=== PATIENT | female | born 1945 | race African-American/Black ===

== ENCOUNTER 2019-11-14 15:07 | Emergency (ER) | payer MEDICARE, OTHER ==
[~2019-11-14] VITALS: Ht 157.5 cm; Wt 103.4 kg
--- NOTE | 2019-11-14 15:15 | NUR ---
ED Nurse Note: patient walked into ED from home with her cane c/o lower leg swelling, referred by patient's PMD to rule out DVT. right leg more swollen and warmth noted. patient is alert awake x4 ambulatory breathing unlabored even speaking in full sentences. patient changed into a gown.
--- NOTE | 2019-11-14 15:16 | NUR ---
ED Nurse Note: patient reports she had the swelling on the legs for 3 weeks.
--- NOTE | 2019-11-14 15:27 | Emergency Room Report ---
History of Present Illness General Chief Complaint: Edema Source: Patient Present Illness HPI Patient is a 74-year-old female past medical history of obesity, DVT in the past states she is on any blood thinners, bone cancer of her right lower leg when she was 17, hypertension and diabetes who presents to the ER complaining of right lower extremity swelling for the past 3 weeks. She states that her swelling has been increasing and is painful. She denies any chest pain or shortness of breath. She denies any fever or chills. She denies any abdominal pain nausea or vomiting. She denies any trauma. Patient states that she went to her primary care physician who referred her here. Per PCP note they are requesting arterial and venous ultrasound. Allergies: Coded Allergies: CIPROFLOXACIN (Verified Allergy, Unknown, 11/14/19) HYDROCODONE (Verified Allergy, Unknown, 11/14/19) MEPERIDINE (Verified Allergy, Unknown, 11/14/19) SULFAMETHOXAZOLE (Verified Allergy, Unknown, 11/14/19) TRIMETHOPRIM (Verified Allergy, Unknown, 11/14/19) COVID-19 Screening Contact w/high risk pt: No Experienced COVID-19 symptoms?: No COVID-19 Testing performed LEAD PRESSMAN: No Patient History Reviewed Nursing Documentation: PMH: Agreed; PSxH: Agreed Nursing Documentation-PMH Past Medical History: No History, Except For Hx Hypertension: Yes Hx Diabetes: Yes Review of Systems All Other Systems: negative except mentioned in HPI Physical Exam Vital Signs Date Time Temp Pulse Resp B/P (MAP) Pulse Ox O2 Delivery O2 Flow Rate FiO2 11/14/19 15:10 98.1 94 16 146/90 (108) 100 Room Air Sp02 EP Interpretation: reviewed, normal General Appearance: no apparent distress, alert, GCS 15, non-toxic Head: normocephalic, atraumatic Eyes: bilateral eye normal inspection, bilateral eye PERRL ENT: hearing grossly normal, normal pharynx, no angioedema, normal voice Neck: full range of motion, supple/symm/no masses Respiratory: chest non-tender, lungs clear, normal breath sounds, speaking full sentences Cardiovascular #1: regular rate, rhythm, no edema Gastrointestinal: normal bowel sounds, non tender, soft, non-distended, no guarding, no rebound Rectal: deferred Genitourinary: no CVA tenderness Musculoskeletal: other - Right lower extremity diffuse edema below the knee with tenderness to palpation and warmth to touch, 2+ pedal pulses bilaterally warm extremities normal range of motion Neurologic: greens planter III-XII nml as tested, oriented x3 Psychiatric: no suicidal/homicidal ideation Skin: no rash Lymphatic: no adenopathy Medical Decision Making Diagnostic Impression: Primary Impression: Edema Additional Impression: Pulmonary vascular congestion ER Course Patient's labs demonstrate BNP just under 200. Patient has no known history of CHF. Patient's chest x-ray demonstrates mild increased pulmonary vasculature. Patient's ultrasound demonstrates no evidence for DVT or arterial insufficiency. I went over her results with her and offered her admission for her possible new onset CHF. Patient states that due to the COVID-19 pandemic she does not want to be admitted and will follow up with that assistant floor covering printer on Sunday which is in 3 days. I told her to be very cognizant of worsening symptoms including fever, chest pain or shortness of breath. Bedside RN was at bedside when I was discussing the offer of admission and when she declined bedside RN is Dianne. After discussing risks and benefits of further diagnostics , treatment plans, as well as indications for and risks of admission, the patient is agreeable to being discharged home. I have explained that their evaluation and treatment in the emergency department today is an important step towards them achieving better health but that their evaluation today is not intended to replace further evaluation and treatment by a physician in their local clinic. I have explained that while the current findings suggest no immediate life threatening emergency they will require further evaluation and treatment by a physician of their choice in their area. They understand that it will be necessary for them to review the final reports of their ED visit with their clinic physician. We have reviewed indications for return to the Emergency Department. I have explained that additional time may need to pass and/or additional testing as an outpatient may be necessary before a definitive diagnosis can be made. They tell me they are willing to follow up as instructed within the timeframe I recommend. They appear to understand what we discussed. Additionally they understand that if they are unable to be seen by an outpatient physician they are welcome, and in fact should, return to the Emergency Department for a repeat evaluation. The patient is stable at time of discharge. Laboratory Tests Test 11/14/19 15:25 White Blood Count 9.9 K/UL (4.8-10.8) Red Blood Count 4.42 M/UL (4.20-5.40) Hemoglobin 12.3 G/DL (12.0-16.0) Hematocrit 38.5 % (37.0-47.0) Mean Corpuscular Volume 87 FL (80-99) Mean Corpuscular Hemoglobin 27.9 PG (27.0-31.0) Mean Corpuscular Hemoglobin Concent 32.0 G/DL (32.0-36.0) Red Cell Distribution Width 12.9 % (11.6-14.8) Platelet Count 193 K/UL (150-450) Mean Platelet Volume 11.4 FL (6.5-10.1) H Neutrophils (%) (Auto) 70.3 % (45.0-75.0) Lymphocytes (%) (Auto) 21.8 % (20.0-45.0) Monocytes (%) (Auto) 5.1 % (1.0-10.0) Eosinophils (%) (Auto) 1.3 % (0.0-3.0) Basophils (%) (Auto) 1.5 % (0.0-2.0) Prothrombin Time 10.8 SEC (9.30-11.50) Prothrombin Time INR 1.0 (0.9-1.1) Activated Partial Thromboplast Time 27 SEC (23-33) Sodium Level 139 MMOL/L (136-145) Potassium Level 3.9 MMOL/L (3.5-5.1) Chloride Level 105 MMOL/L (98-107) Carbon Dioxide Level 27 MMOL/L (21-32) Anion Gap 7 mmol/L (5-15) Blood Urea Nitrogen 20 mg/dL (7-18) H Creatinine 1.2 MG/DL (0.55-1.30) Estimated Glomerular Filtration Rate 44.0 mL/min (>60) Glucose Level 182 MG/DL (74-106) H Calcium Level 9.3 MG/DL (8.5-10.1) Total Bilirubin 0.3 MG/DL (0.2-1.0) Aspartate Amino Transferase (AST) 16 U/L (15-37) Alanine Aminotransferase (ALT) 21 U/L (12-78) Alkaline Phosphatase 69 U/L (46-116) Total Creatine Kinase 295 U/L (26-308) Troponin I 0.000 ng/mL (0.000-0.056) Pro-B-Type Natriuretic Peptide 136 pg/mL (0-125) H Total Protein 7.5 G/DL (6.4-8.2) Albumin 3.9 G/DL (3.4-5.0) Globulin 3.6 g/dL Albumin/Globulin Ratio 1.1 (1.0-2.7) EKG Diagnostic Results EKG Time: 15:32 EP Interpretation: Sangeetha Dhillon MD Rate: normal Rhythm: NSR ST Segments: no acute changes Other Impression First-degree AV block, prolonged QT ASA given to the pt in ED: No Rhythm Strip Diag. Results Rhythm Strip Time: 16:07 EP Interpretation: yes - Sangeetha Dhillon MD Rate: 82 bpm Rhythm: NSR, no PVC's, no ectopy Chest X-Ray Diagnostic Results Chest X-Ray Diagnostic Results : # of Views/Limited/Complete: 1 View Indication: Other - edema EP Interpretation: Yes Interpretation: no consolidation, no pneumothorax, other - Increased pulmonary vasculature Impression: Other - Possibly mild CHF Electronically Signed by: Sangeetha Dhillon MD Last Vital Signs Date Time Temp Pulse Resp B/P (MAP) Pulse Ox O2 Delivery O2 Flow Rate FiO2 11/14/19 15:10 98.1 94 16 146/90 (108) 100 Room Air Disposition: HOME, SELF-CARE Condition: Stable Scripts Clindamycin Hcl (CLINDAMYCIN HCL) 300 Mg Capsule 300 MG ORAL THREE TIMES A DAY, #30 CAP Prov: Sangeetha Dhillon M.D. 11/14/19 Additional Instructions: The patient was provided with discharge instructions, notified to follow-up with a primary care doctor and or specialist in the next 24-48 hours, and to return to the ED if they have worsening of their symptoms. Please note that this report is being documented using [employer] technology. This can lead to erroneous entry secondary to incorrect interpretation by the dictating instrument. Sangeetha Dhillon M.D. Nov 14, 2019 15:27
--- NOTE | 2019-11-14 15:45 | NUR ---
ED Nurse Note: US at bedside.
[2019-11-14 15:50] LABS: BASOPHILS % (AUTO) 1.5 % (0.0-2.0); EOSINOPHILS % (AUTO) 1.3 % (0.0-3.0); HEMATOCRIT 38.5 % (37.0-47.0); HEMOGLOBIN 12.3 G/DL (12.0-16.0); LYMPHOCYTES % (AUTO) 21.8 % (20.0-45.0); MEAN CORPUSCULAR VOLUME 87 FL (80-99); MONOCYTES % (AUTO) 5.1 % (1.0-10.0); NEUTROPHILS % (AUTO) 70.3 % (45.0-75.0); PLATELET COUNT 193 K/UL (150-450); RED BLOOD COUNT 4.42 M/UL (4.20-5.40); RED CELL DISTRIBUTION WIDTH 12.9 % (11.6-14.8); WHITE BLOOD COUNT 9.9 K/UL (4.8-10.8)
[2019-11-14 15:55] LABS: ANION GAP 7 mmol/L (5-15); BLOOD UREA NITROGEN 20 mg/dL (7-18); CALCIUM 9.3 MG/DL (8.5-10.1); CARBON DIOXIDE 27 MMOL/L (21-32); CHLORIDE 105 MMOL/L (98-107); CREATININE 1.2 MG/DL (0.55-1.30); POTASSIUM 3.9 MMOL/L (3.5-5.1); SODIUM 139 MMOL/L (136-145)
[2019-11-14 16:01] LABS: ALANINE AMINOTRANSFERASE 21 U/L (12-78); ALBUMIN 3.9 G/DL (3.4-5.0); ALBUMIN/GLOBULIN RATIO 1.1 (1.0-2.7); ALKALINE PHOSPHATASE 69 U/L (46-116); ASPARTATE AMINO TRANSFERASE 16 U/L (15-37); BILIRUBIN,TOTAL 0.3 MG/DL (0.2-1.0); CREATINE KINASE 295 U/L (26-308)
[2019-11-14 16:32] VITALS: BP 137/67
--- NOTE | 2019-11-14 17:04 | Diagnostic Imaging Report ---
Indication:Leg pain and swelling Technique: Grayscale and duplex Doppler imaging of the veins in both lower extremities performed in real time utilizing compression and augmentation. Comparison: None Findings: Duplex Doppler interrogation of the veins in both lower extremity is performed from the common femoral vein to the popliteal vein. Normal venous compressibility demonstrated throughout. No thrombus identified. Waveform analysis shows good respiratory phasicity and augmentation. Some mild subcutaneous edema noted in the bilateral calves, right greater than left. No organized subcutaneous fluid collection is demonstrated. IMPRESSION: No evidence of deep venous thrombosis involving the lower extremities.
[2019-11-14] MEDS ORDERED: CLINDAMYCIN HC300 MG ORAL (17:23)
--- NOTE | 2019-11-14 17:32 | Diagnostic Imaging Report ---
Indication: Resolution of the pain Technique: Color and duplex Doppler imaging of the arteries of the right lower extremity Comparison: None Findings: The right common femoral artery is patent with normal color flow. The waveform however appears monophasic. There is is portions of the right SFA are patent with normal color flow however waveforms are monophasic. Popliteal artery and visualized portions of the tibial arteries are patent with monophasic waveforms. Dorsalis pedis artery is patent. IMPRESSION: Visualized arteries of the right lower extremity are patent however a normal triphasic waveform is not identified. Possibility of an upstream aortoiliac lesion not excluded. Recommend more sensitive evaluation with CT angiogram of the abdominal aorta and bilateral lower extremity runoff as clinically indicated.
[2019-11-14 18:00] VITALS: BP 139/72
[2019-11-14] MEDS ORDERED: Clindamycin 150mg cap ORAL SCH (18:00)
--- NOTE | 2019-11-14 18:06 | Diagnostic Imaging Report ---
Indication: Reason For Exam: PAIN Technique: Single AP view of the chest. Comparison: None. Findings: The cardiomediastinal silhouette is within normal limits. There is hazy increased density in the periphery of the left midlung and right base. No airspace consolidation. There is diffuse peribronchial thickening. No pneumothorax. No pleural effusion. No acute osseous abnormality. IMPRESSION: Hazy left midlung and right base airspace opacities which could represent in the setting of infectious/inflammatory airways disease atelectasis but pneumonia should be excluded clinically.
--- NOTE | 2019-11-14 18:23 | NUR ---
ER DISCHARGE NOTE: Patient is cleared to be discharged per ERMD Dr. Dhillon, pt is aox4, on room air, with stable vital signs. pt was given extensive dc and prescription instructions, pt was able to verbalize understanding, pt id band and iv site removed without complications. pt is able to ambulate with steady gait. pt took all belongings.
--- NOTE | 2019-11-14 18:24 | NUR ---
ED Nurse Note: patient walked out of ED with her cane steadily with all of her belongings.
[2019-11-14 18:43] VITALS: BP 139/72
== END 2019-11-14 18:43 | disposition home or self-care (01) ==
LOC: EMR 16:06
DX: R60.0 Localized edema (principal); R09.89 Other specified symptoms and signs involving the circulatory and respiratory systems; Z86.718 Personal history of other venous thrombosis and embolism; Z88.6 Allergy status to analgesic agent; Z88.2 Allergy status to sulfonamides; Z85.830 Personal history of malignant neoplasm of bone; I10 Essential (primary) hypertension; E11.9 Type 2 diabetes mellitus without complications; I44.0 Atrioventricular block, first degree
CPT/HCPCS: 36415; 71045; 80053; 82550; 83880; 84484; 85025; 85610; 85730; 93005; 93926; 93970; 99284